=== PATIENT | male | born 1935 | race Caucasian/White ===

== ENCOUNTER 2020-01-06 12:08 | Emergency (ER) | payer OTHER, BC ==
[~2020-01-06] VITALS: Ht 170.2 cm; Wt 86.2 kg
[2020-01-06] MEDS ORDERED: CRESTOR10 MG (12:28)
[2020-01-06] MEDS ORDERED: TIVORBEX20 MG (12:28)
[2020-01-06] MEDS ORDERED: ATACAND32 MG (12:28)
[2020-01-06] MEDS ORDERED: TAMS0.4C (12:29)
[2020-01-06] MEDS ORDERED: ZYLOPRIM100 M1 (12:29)
[2020-01-06] MEDS ORDERED: MUPIROCIN15 GM TOP (12:59)
[2020-01-06] MEDS ORDERED: AMOX-CLAV 875-1 EACH PO (12:59)
[2020-01-06] MEDS ORDERED: HIBICLENS118 ML TOP (12:59)
== END 2020-01-06 13:17 | disposition home or self-care (01) ==
LOC: ER 12:08
DX: L03.116 Cellulitis of left lower limb (principal)